=== PATIENT | male | born 1940 | race Caucasian/White ===

== ENCOUNTER 2017-02-19 10:27 | Inpatient (IN) | payer MEDICARE, OTHER ==
[~2017-02-19] VITALS: Ht 170.2 cm; Wt 68.9 kg
--- NOTE | 2017-02-19 10:39 | NUR ---
Per pt's daughter Gabi pt is not taking any medications at this time.
--- NOTE | 2017-02-19 10:39 | NUR ---
STACY SALGADO (FROM [facility]) WHO STATES SHE IS THE PT'S DAUGHTER. FELICITA SALGADO PT IS CURRENTLY HOMELESS AND THEY WERE REFERRED HERE BY THE PSYCH INTAKE FROM THIS FACILITY. PT IS A 76 Y/O MALE. ARRIVED IN THE ED WITH THE USED OF WHEELCHAIR. PT IS ABLE TO WALK, BUT WITH UNSTEADY GAIT. PT HAVE CHRONIC KNEE PAIN. PT IS ACCOMPANIED BY DAUGHTER AT BEDSIDE. PT ALSO UTILIZES CANE TO AMBULATE AROUND. DENIES SI/HI/AVH. HOWEVER PT IS HOMELESS, UNABLE TO PROVIDE HALF-WAY FOR THEMSELVES. MD PARIS AT BEDSIDE PERFORMING MSE. WCTM PT AT THIS TIME. PUSHPA NOTIFIED FOR PSYCH EVAL AT 4780
[2017-02-19 11:03] LABS: BASOPHILS # (AUTO) 0.4 K/uL (0.0-8.0); BASOPHILS % (AUTO) 3.1 % (0.0-2.0); EOSINOPHILS % (AUTO) 0.3 % (0.0-7.0); HEMATOCRIT 43.4 % (40-50); HEMOGLOBIN 14.7 G/DL (14.0-18.0); LYMPHOCYTES # (AUTO) 2.2 K/UL (0.8-4.8); LYMPHOCYTES % (AUTO) 18.9 % (20.5-51.5); MEAN CORPUSCULAR HEMOGLOBIN 30.1 UUG (27.0-31.0); MEAN CORPUSCULAR HGB CONC 34 g/dL (32.0-37.0); MEAN CORPUSCULAR VOLUME 88.9 FL (82.0-92.0); MONOCYTES # (AUTO) 0.6 K/UL (0.1-1.30); NEUTROPHILS # (AUTO) 8.2 K/UL (1.8-8.9); NEUTROPHILS % (AUTO) 72.7 % (38.5-71.5); PLATELET COUNT (AUTO) 280 K/UL (150-450); RED BLOOD CELL COUNT(AUTO) 4.88 MIL/UL (4.7-6.1); WHITE BLOOD COUNT (AUTO) 11.4 K/UL (4.0-11.2)
[2017-02-19 11:09] LABS: ETHANOL < 3 MG/DL (0-0)
[2017-02-19 11:11] LABS: CARBON DIOXIDE 28 mmol/L (21-32); CHLORIDE 102 mmol/L (98-107); CREATININE 1.1 mg/dL (0.6-1.3); GLUCOSE 182 mg/dL (74-106); POTASSIUM 4.1 mmol/L (3.5-5.1); UREA NITROGEN, BLOOD 22 mg/dL (7-18)
[2017-02-19 11:22] LABS: ACETAMINOPHEN < 2.0 ug/mL (10-30); ALANINE AMINOTRANSFERASE 20 U/L (16-63); ALKALINE PHOSPHATASE 66 U/L (50-136); ASPARTATE AMINOTRANSFERASE 33 U/L (15-37); BILIRUBIN,DIRECT 0.4 mg/dL (0.0-0.2); BILIRUBIN,TOTAL 1.4 mg/dL (0.2-1.0); TOTAL PROTEIN, SERUM 7.6 g/dL (6.4-8.2)
--- NOTE | 2017-02-19 11:25 | NUR ---
PUSHPA AT BEDSIDE PERFORMING EVALUATION
[2017-02-19 11:48] LABS: BAND % (MANUAL) 10 % (0-10); LYMPHOCYTES % (MANUAL) 20 % (20-40); MONOCYTES % (MANUAL) 6 % (2-10); NEUTROPHILS % (MANUAL) 64 % (42-75)
--- NOTE | 2017-02-19 12:17 | NUR ---
REPORT GIVEN TO MASON RN AWARE OF PT'S CURRENT CONDITION AND WILL CONTINUE FURTHER PLAN OF CARE
[2017-02-19] MEDS ORDERED: MAGNESIUM HYDROXIDE 30 ML LIQUID UDC PO PRN (14:00)
[2017-02-19] MEDS ORDERED: LORAZEPAM 0.5 MG TABLET PO PRN (14:00)
[2017-02-19] MEDS ORDERED: MAG HYDROX/AL HYDROX/SIMETH 30 ML LIQUID UDC PO PRN (14:00)
[2017-02-19 15:36] VITALS: BP 139/75
--- NOTE | 2017-02-19 15:58 | NUR ---
1170 ADMITTED A 76 YRS. OLD TAJIK MALE FROM ER PER CARMEN WITH DX. PSYCHOSIS / DEMENTIA WITH BEHAVIORAL PROBLEM. PATIENT PLACED ON 5150 FOR DANGER TO SELF VERBALIZING SI " WANTING TO FROM LIVING ON STRE[address] AND NOT TAKING HIS PSYCHOTROPIC MEDICATIONS AFTER HIS LAST HOSPITALIZATION. PATIENT ALERT AND OX3, DENIES SI, MILDLY ANXIOUS BUT COOPERATIVE WHEN ASKED. ADMISSION CARE DONE. DR. CERRATO AND CROP OR GRAIN FARMWORKER, Edwin RUSHING NOTIFIED OF THE ADMISSION.
[2017-02-19] MEDS: FOLIC ACID 1 MG TABLET PO SCH (16:41)
[2017-02-19] MEDS: THIAMINE HCL 100 MG TABLET PO SCH (16:41)
[2017-02-19] MEDS: MULTIVITAMINS,THERAPEUTIC TABLET PO SCH (16:41)
[2017-02-19 20:13] VITALS: BP 123/71
[2017-02-19] MEDS: LORAZEPAM 1 MG TABLET PO SCH (21:53)
[2017-02-19] MEDS ORDERED: LORAZEPAM 1 MG TABLET PO PRN (22:00)
[2017-02-19] MEDS ORDERED: LORAZEPAM 1 MG TABLET ONE (22:05)
[2017-02-20 07:30] VITALS: BP 116/73
[2017-02-20 07:55] LABS: BASOPHILS % (AUTO) 0.2 % (0.0-2.0); EOSINOPHILS # (AUTO) 0.2 K/uL (0.0-0.7); EOSINOPHILS % (AUTO) 1.8 % (0.0-7.0); HEMATOCRIT 44.5 % (40-50); HEMOGLOBIN 14.6 G/DL (14.0-18.0); LYMPHOCYTES # (AUTO) 2.9 K/UL (0.8-4.8); LYMPHOCYTES % (AUTO) 32.5 % (20.5-51.5); MEAN CORPUSCULAR HEMOGLOBIN 29.5 UUG (27.0-31.0); MEAN CORPUSCULAR HGB CONC 33 g/dL (32.0-37.0); MEAN CORPUSCULAR VOLUME 89.8 FL (82.0-92.0); MONOCYTES # (AUTO) 0.6 K/UL (0.1-1.30); MONOCYTES % (AUTO) 6.6 % (0.0-11.0); NEUTROPHILS # (AUTO) 5.3 K/UL (1.8-8.9); NEUTROPHILS % (AUTO) 58.9 % (38.5-71.5); PLATELET COUNT (AUTO) 214 K/UL (150-450); RED BLOOD CELL COUNT(AUTO) 4.95 MIL/UL (4.7-6.1)
[2017-02-20 07:56] LABS: ALANINE AMINOTRANSFERASE 17 U/L (16-63); ALKALINE PHOSPHATASE 68 U/L (50-136); ASPARTATE AMINOTRANSFERASE 28 U/L (15-37); BILIRUBIN,TOTAL 1.9 mg/dL (0.2-1.0); CARBON DIOXIDE 29 mmol/L (21-32); CHLORIDE 104 mmol/L (98-107); CHOLESTEROL 119 mg/dL (<200); CREATININE 0.8 mg/dL (0.6-1.3); GLUCOSE 101 mg/dL (74-106); HDL CHOLESTEROL 91 mg/dL (40-60); MAGNESIUM 1.7 mg/dL (1.8-2.4); POTASSIUM 3.9 mmol/L (3.5-5.1); THYROID STIMULATING HORMONE 1.171 mIU/mL (0.358-3.740); TOTAL PROTEIN, SERUM 7.3 g/dL (6.4-8.2); TRIGLYCERIDES 66 MG/DL (30-150); UREA NITROGEN, BLOOD 17 mg/dL (7-18)
[2017-02-20] MEDS: THIAMINE HCL 100 MG TABLET PO SCH (08:04)
[2017-02-20] MEDS: MULTIVITAMINS,THERAPEUTIC TABLET PO SCH (08:04)
[2017-02-20] MEDS: FOLIC ACID 1 MG TABLET PO SCH (08:05)
[2017-02-20] MEDS: LORAZEPAM 1 MG TABLET PO SCH ×3 (08:05→17:35)
[2017-02-20] MEDS: ACETAMINOPHEN 325 MG TABLET PO PRN ×2 (08:12→22:05)
[2017-02-20] MEDS ORDERED: MAGNESIUM OXIDE 400 MG TABLET PO ONE (10:45)
[2017-02-20 12:11] LABS: BAND % (MANUAL) 12 % (0-10); BASOPHILS % (MANUAL) 1 % (0-2); EOSINOPHILS % (MANUAL) 3 % (0-8); LYMPHOCYTES % (MANUAL) 36 % (20-40); MONOCYTES % (MANUAL) 5 % (2-10); NEUTROPHILS % (MANUAL) 43 % (42-75)
[2017-02-20] MEDS: ESCITALOPRAM OXALATE 10 MG TABLET PO SCH (12:14)
[2017-02-20] MEDS ORDERED: PNEUMOCOCCAL 23-VAL P-SAC VAC 0.5 ML VIAL IM ONE (13:00)
[2017-02-20] MEDS ORDERED: IBUPROFEN 400 MG TABLET PO PRN (14:45)
[2017-02-20 17:14] VITALS: BP 122/74
[2017-02-20 19:55] LABS: *BILIRUBIN,URIN NEGATIVE (NEGATIVE); *BLOOD, URINE Trace-intact (NEGATIVE); *CLARITY,URINE CLEAR (CLEAR); *COLOR,URINE YELLOW (YELLOW); *KETONES,URINE NEGATIVE (NEGATIVE); *PROTEIN,URINE NEGATIVE (NEGATIVE); LEUKOCYTE ESTERASE ,URINE NEGATIVE (NEGATIVE); NITRITE, URINE NEGATIVE (NEGATIVE); UGLUCOSE NEGATIVE (NEGATIVE)
[2017-02-20 19:57] LABS: MUCUS,URINE FEW /LPF (0-FEW); SQUAMOUS EPITHELIAL CELL,UR FEW /HPF (NONE SEEN); WBC,URINE 0-3 /HPF (0-3)
[2017-02-20 19:57] LABS: *AMPHETAMINE, URINE NEGATIVE (NEGATIVE); *BARBITURATE, URINE NEGATIVE (NEGATIVE); *CANNABINOID, URINE POSITIVE (NEGATIVE); *COCCAINE, URINE NEGATIVE (NEGATIVE); *OPIATE, URINE NEGATIVE (NEGATIVE); *PHENCYCLIDINE SCREEN,URINE NEGATIVE (NEGATIVE)
[2017-02-20 20:31] VITALS: BP 118/73
[2017-02-20] MEDS: TEMAZEPAM 7.5 MG CAPSULE PO PRN (22:06)
[2017-02-21 07:30] VITALS: BP 102/68
[2017-02-21] MEDS ORDERED: LORAZEPAM 1 MG TABLET PO SCH (09:00)
[2017-02-21] MEDS: FOLIC ACID 1 MG TABLET PO SCH (10:44)
[2017-02-21] MEDS: MULTIVITAMINS,THERAPEUTIC TABLET PO SCH (10:45)
[2017-02-21] MEDS: ESCITALOPRAM OXALATE 10 MG TABLET PO SCH (10:46)
[2017-02-21] MEDS: THIAMINE HCL 100 MG TABLET PO SCH (10:47)
[2017-02-21] MEDS: ACETAMINOPHEN 325 MG TABLET PO PRN ×2 (11:22→21:08)
[2017-02-21 16:10] VITALS: BP 127/72
[2017-02-21] MEDS: LORAZEPAM 0.5 MG TABLET PO SCH (17:23)
[2017-02-21 21:05] VITALS: BP 128/74
[2017-02-21] MEDS: TEMAZEPAM 7.5 MG CAPSULE PO PRN (21:08)
[2017-02-22 07:45] VITALS: BP 111/66
[2017-02-22] MEDS: THIAMINE HCL 100 MG TABLET PO SCH (08:03)
[2017-02-22] MEDS: FOLIC ACID 1 MG TABLET PO SCH (08:03)
[2017-02-22] MEDS: MULTIVITAMINS,THERAPEUTIC TABLET PO SCH (08:05)
[2017-02-22] MEDS: ESCITALOPRAM OXALATE 10 MG TABLET PO SCH (08:05)
[2017-02-22] MEDS: LORAZEPAM 0.5 MG TABLET PO SCH ×3 (08:05→16:40)
--- NOTE | 2017-02-22 16:00 | NUR ---
Initial DC Plan: Patient is currently homeless. Pt would like to be placed at [facility] [[address], [place] [address]; ]. YUSRA spoke with pt's daughter Gabi [[phone]] who agrees that pt should be placed at [facility]. YUSRA will follow up with [facility] to discuss potential discharge plans. UYSRA will follow up with MD, patient, and pt's family to discuss most appropriate discharge plans. SW will form a safe and proper discharge plan.
[2017-02-22 17:41] VITALS: BP 137/86
[2017-02-22 20:33] VITALS: BP 112/70
[2017-02-23 07:30] VITALS: BP 131/92
[2017-02-23] MEDS: ESCITALOPRAM OXALATE 10 MG TABLET PO SCH (08:30)
[2017-02-23] MEDS: THIAMINE HCL 100 MG TABLET PO SCH (08:30)
[2017-02-23] MEDS: FOLIC ACID 1 MG TABLET PO SCH (08:30)
[2017-02-23] MEDS: MULTIVITAMINS,THERAPEUTIC TABLET PO SCH (08:30)
[2017-02-23] MEDS ORDERED: LORAZEPAM 0.5 MG TABLET PO SCH (09:00)
[2017-02-23] MEDS: CEPHALEXIN MONOHYDRATE 500 MG CAPSULE PO SCH ×3 (10:27→21:14)
[2017-02-23] MEDS ORDERED: LORAZEPAM 0.5 MG TABLET PO PRN (11:30)
[2017-02-23 17:00] VITALS: BP 130/64
[2017-02-23 20:05] VITALS: BP 121/70
[2017-02-23] MEDS ORDERED: DONEPEZIL 5 MG TABLET PO SCH (21:00)
[2017-02-23] MEDS ORDERED: LORAZEPAM 1 MG TABLET PO PRN (22:00)
[2017-02-24] MEDS: ACETAMINOPHEN 325 MG TABLET PO PRN (06:22)
[2017-02-24] MEDS: CEPHALEXIN MONOHYDRATE 500 MG CAPSULE PO SCH ×2 (06:22→14:12)
[2017-02-24 07:30] VITALS: BP 131/69
[2017-02-24] MEDS: MULTIVITAMINS,THERAPEUTIC TABLET PO SCH (08:52)
[2017-02-24] MEDS: THIAMINE HCL 100 MG TABLET PO SCH (08:52)
[2017-02-24] MEDS: FOLIC ACID 1 MG TABLET PO SCH (08:52)
[2017-02-24] MEDS: ESCITALOPRAM OXALATE 10 MG TABLET PO SCH (08:52)
--- NOTE | 2017-02-24 10:43 | NUR ---
DC Note: Patient will be discharged to [facility] [[address], [place] [address]; ] via private transport at 3pm. Patient will be picked up by [facility]. YUSRA spoke with nurse outreach case manager Belinda at [facility] to confirm discharge plans and transportation. Patient is aware and agreeable to discharge plan. YUSRA spoke to pt's daughter Gabi Ruiz [[phone]] who is aware and agreeable to discharge plan. Pt will follow up with Dr. Salazar (Carbon Sequestration Plant Manager) and Dr. Allan (Psychiatrist). Pt was provided a brief substance abuse intervention and was given referrals for [facility] [place] [[phone]], [facility] [[phone]], and [facility] [place] [[phone]].
[2017-02-24 15:12] VITALS: BP 128/64
--- NOTE | 2017-02-24 16:00 | NUR ---
Patient is for discharge today at [facility], discharged instructions reviewed with patient, educate the importance of medication compliance and follow up check up, verbalized understanding and signed discharged papers. Report given to ARIADNA Burton at [facility]. Patient was discharged in stable condition, denies suicidal ideation, stable. Patient left the unit at 1550 with all his belongings and discharged papers accompanied by staff via wheelchair.
== END 2017-02-24 15:50 | DRG 885 ==
LOC: ER 10:27 → GPS 12:56
PROVIDERS: ADMIT Psychiatry & Neurology Psychosomatic Medicine; ATTEND Internal Medicine
DX: F33.2 Major depressive disorder, recurrent severe without psychotic features (principal); E44.0 Moderate protein-calorie malnutrition; F03.91 Unspecified dementia, unspecified severity, with behavioral disturbance; E88.09 Other disorders of plasma-protein metabolism, not elsewhere classified; N39.0 Urinary tract infection, site not specified; R45.851 Suicidal ideations; E83.42 Hypomagnesemia; G89.29 Other chronic pain; R73.03 Prediabetes; Z59.0 Homelessness; F10.20 Alcohol dependence, uncomplicated; Y90.9 Presence of alcohol in blood, level not specified; D72.829 Elevated white blood cell count, unspecified; E80.6 Other disorders of bilirubin metabolism; M17.0 Bilateral primary osteoarthritis of knee; K80.20 Calculus of gallbladder without cholecystitis without obstruction; K76.0 Fatty (change of) liver, not elsewhere classified; Z68.23 Body mass index [BMI] 23.0-23.9, adult; M24.462 Recurrent dislocation, left knee; M24.461 Recurrent dislocation, right knee
CPT/HCPCS: 36415; 70450; 71010; 73560; 76705; 80307; 83735; 84100; 84443; 85025; 87086; 90732; 93005; A4663; G0480; G0480-TC

== ENCOUNTER 2017-05-21 16:45 | Inpatient (IN) | payer MEDICARE, OTHER ==
[~2017-05-21] VITALS: Ht 170.2 cm; Wt 74.8 kg
--- NOTE | 2017-05-21 16:50 | NUR ---
SECURITY/OBSERVER AT BEDSIDE.
--- NOTE | 2017-05-21 17:20 | NUR ---
PATIENT SEEN BY MD. HE IS AWAKE AND ALERT. AWAITING TEST RESULTS.
[2017-05-21] MEDS ORDERED: SENN-167 PO (17:21)
[2017-05-21] MEDS ORDERED: ACET325C PO (17:21)
[2017-05-21] MEDS ORDERED: MULT1TAB73 PO (17:21)
[2017-05-21] MEDS ORDERED: MAGN500T2 PO (17:21)
[2017-05-21] MEDS ORDERED: ESCI10TA PO (17:21)
[2017-05-21] MEDS ORDERED: LACT10SO PO (17:21)
[2017-05-21] MEDS ORDERED: FOLI1TAB16 PO (17:21)
[2017-05-21] MEDS ORDERED: ACET325T53 PO (17:21)
[2017-05-21] MEDS ORDERED: IBUP-1953 PO (17:21)
[2017-05-21] MEDS ORDERED: BISA10SU12 RC (17:21)
[2017-05-21] MEDS ORDERED: THIA100T13 PO (17:21)
[2017-05-21] MEDS ORDERED: MAGN400O6 PO (17:21)
[2017-05-21] MEDS ORDERED: DONE5TAB34 PO (17:21)
[2017-05-21 17:41] LABS: BASOPHILS # (AUTO) 0.1 K/uL (0.0-8.0); EOSINOPHILS # (AUTO) 0.2 K/uL (0.0-0.7); EOSINOPHILS % (AUTO) 1.7 % (0.0-7.0); HEMATOCRIT 37.6 % (36.7-47.1); HEMOGLOBIN 12.6 g/dL (12.5-16.3); LYMPHOCYTES # (AUTO) 3.6 K/uL (20.0-40.0); LYMPHOCYTES % (AUTO) 28.6 % (20.5-51.5); MEAN CORPUSCULAR HEMOGLOBIN 30.7 uug (23.8-33.4); MEAN CORPUSCULAR HGB CONC 33 g/dL (32.5-36.3); MEAN CORPUSCULAR VOLUME 91.9 fL (73.0-96.2); MONOCYTES # (AUTO) 0.9 K/uL (2.0-10.0); MONOCYTES % (AUTO) 7.4 % (0.0-11.0); NEUTROPHILS # (AUTO) 7.7 K/uL (1.8-8.9); NEUTROPHILS % (AUTO) 61.3 % (38.5-71.5); PLATELET COUNT (AUTO) 304 K/uL (152-348); WHITE BLOOD COUNT (AUTO) 12.5 K/uL (3.6-10.2)
[2017-05-21 17:50] LABS: CARBON DIOXIDE 25 mmol/L (21-32); CHLORIDE 105 mmol/L (98-107); GLUCOSE 100 mg/dL (74-106); UREA NITROGEN, BLOOD 17 mg/dL (7-18)
[2017-05-21 17:56] LABS: ALANINE AMINOTRANSFERASE 23 U/L (16-63); ALKALINE PHOSPHATASE 61 U/L (50-136); ASPARTATE AMINOTRANSFERASE 37 U/L (15-37); BILIRUBIN,DIRECT 0.1 mg/dL (0.0-0.2); BILIRUBIN,TOTAL 0.5 mg/dL (0.2-1.0)
[2017-05-21 18:07] LABS: ETHANOL < 3 MG/DL (0-0)
[2017-05-21 18:16] LABS: THYROID STIMULATING HORMONE 0.947 mIU/mL (0.358-3.740)
[2017-05-21 18:18] LABS: *BILIRUBIN,URIN NEGATIVE (NEGATIVE); *BLOOD, URINE 1+ (NEGATIVE); *CLARITY,URINE CLEAR (CLEAR); *COLOR,URINE YELLOW (YELLOW); *KETONES,URINE NEGATIVE (NEGATIVE); *PROTEIN,URINE NEGATIVE (NEGATIVE); *UROBILINOGEN,URINE 0.2 E.U./dl (NORMAL); LEUKOCYTE ESTERASE ,URINE NEGATIVE (NEGATIVE); NITRITE, URINE NEGATIVE (NEGATIVE); PH,URINE 5.5 (5.0-8.0); UGLUCOSE NEGATIVE (NEGATIVE)
--- NOTE | 2017-05-21 18:23 | NUR ---
AWAITING FOR TICO COLLIER FOR PSYCH EVAL. SECURITY/OBSERVER AT BEDSIDE.
[2017-05-21 18:26] LABS: WBC,URINE 0-3 /HPF (0-3)
[2017-05-21 18:27] LABS: BACTERIA,URINE NONE SEEN /HPF (NONE SEEN); SQUAMOUS EPITHELIAL CELL,UR FEW /HPF (NONE SEEN)
[2017-05-21 18:34] LABS: *AMPHETAMINE, URINE NEGATIVE (NEGATIVE); *BARBITURATE, URINE NEGATIVE (NEGATIVE); *CANNABINOID, URINE POSITIVE (NEGATIVE); *COCCAINE, URINE NEGATIVE (NEGATIVE); *OPIATE, URINE NEGATIVE (NEGATIVE); *PHENCYCLIDINE SCREEN,URINE NEGATIVE (NEGATIVE)
[2017-05-21] MEDS ORDERED: OLANZAPINE 5 MG TABLET PO ONE (20:30)
[2017-05-21] MEDS ORDERED: OLANZAPINE 5 MG TABLET ONE (20:47)
--- NOTE | 2017-05-21 20:57 | NUR ---
Pt. admitted to [facility], under care of Dr. Ventura Belongs List completed
[2017-05-21] MEDS ORDERED: MAG HYDROX/AL HYDROX/SIMETH 30 ML LIQUID UDC PO PRN (21:15)
[2017-05-21] MEDS ORDERED: MAGNESIUM HYDROXIDE 30 ML LIQUID UDC PO PRN ×2 (21:15→23:45)
--- NOTE | 2017-05-21 22:00 | NUR ---
ADMITTED 77 YEARS OLD MALE TO [facility], UNDER THE CARE OF DR MANJARREZ, ON A 5150 HOLD DUE TO GD. HOLDS STARTED ON 05/21/17 AT 1999 AND WILL BE UP ON 05/24/17 AT 1999. HE WAS MEDICALLY CLEARED AT [facility] ER. PATIENT [facility] PER HOLD, PATIENT HAD BEEN [facility]EMPTING TO [facility] AND HAS HISTORY OF HAVING [facility] IN THE PAST. AT ER, PATIENT ATTEMPTED TO [facility] AND REQUIRED CODE WEN TO SUBDUE PT. PT. HAD DELUSIONAL FIXED IDEA THAT HE CAN LIVE ON THE STREET, HOWEVER, UNABLE TO STAY HOW HE WILL PROVIDE FOR HIMSELF. PATIENT WAS GIVEN ZYPREXA 10MG IM AT APPROX 2044. AT TIME OF ADMISSION, PATIENT WAS CALM AND COOPERATIVE AT TIME OF ADMISSION. HE HAS ABLE COOPERATE WITH ADMISSION PROCESS, HOWEVER HE HAD POOR INSIGHT. DENIED ATTEMPTING TO [facility]. SKIN ASSESSMENT. A BULGED ROUNDED PROTRUDING AREA OF APPROX 10CM IN DIAMETER WAS NOTED IN UPPER LEFT ARM ANTERIOR ASPECT. NO REDNESS DISCHARGED OR WARM TO THE TOUCH WAS NOTED. PATIENT DENIED PAIN. TWO SMALL PURPLE DISCOLORATION NOTED IN LEFT UPPER ARM ANTERIOR ASPECT WERE NOTED. A CIRCULAR BRUISE OF APPROX 4CM IN DIAMETER WAS NOTED IN LEFT ARM ANTERIOR DISTAL ASPECT. TWO SMALL SUPERFICIAL SCRAPES NOTED IN RIGHT UPPER CHEST. MEDICATION WERE RECONCILE.WILL CONTINUE TO MONITOR, Addendum: 05/22/17 at 0558 by HERNAN LEWIS RN CORRECTION: ZYPREXA 10MG PO WAS GIVEN AT APPROX 2034 IN THE ER, PRIOR TO ADMISSION TO U.
[2017-05-21] MEDS ORDERED: SENNOSIDES 1 TABLET PO PRN (23:45)
[2017-05-21] MEDS ORDERED: BISACODYL 10 MG SUPP.RECT RC PRN (23:45)
[2017-05-21 23:50] VITALS: BP 126/65
[2017-05-22] MEDS: ACETAMINOPHEN 325 MG TABLET PO PRN ×2 (06:25→22:58)
--- NOTE | 2017-05-22 06:34 | NUR ---
PATIENT SLEPT FOR APPROX 7.30HRS THROUGH THE NIGHT. HE WOKE UP C/O LEG CRAMPS. TYLENOL 650MG PO PRN WAS GIVEN FOR LEG CRAMPING. WILL MONITOR.
[2017-05-22] MEDS ORDERED: ACETAMINOPHEN 325 MG TABLET ONE (06:41)
[2017-05-22 07:30] VITALS: BP 102/62
[2017-05-22] MEDS: FOLIC ACID 1 MG TABLET PO SCH (12:46)
[2017-05-22] MEDS: THIAMINE HCL 100 MG TABLET PO SCH (12:46)
[2017-05-22 12:57] LABS: BASOPHILS # (AUTO) 0.1 K/uL (0.0-8.0); EOSINOPHILS # (AUTO) 0.2 K/uL (0.0-0.7); EOSINOPHILS % (AUTO) 2.8 % (0.0-7.0); HEMATOCRIT 40.7 % (36.7-47.1); HEMOGLOBIN 13.5 g/dL (12.5-16.3); LYMPHOCYTES # (AUTO) 1.9 K/uL (20.0-40.0); LYMPHOCYTES % (AUTO) 24.8 % (20.5-51.5); MEAN CORPUSCULAR HEMOGLOBIN 30.3 uug (23.8-33.4); MEAN CORPUSCULAR HGB CONC 33 g/dL (32.5-36.3); MEAN CORPUSCULAR VOLUME 91.7 fL (73.0-96.2); MONOCYTES # (AUTO) 0.4 K/uL (2.0-10.0); MONOCYTES % (AUTO) 5.3 % (0.0-11.0); NEUTROPHILS # (AUTO) 4.9 K/uL (1.8-8.9); NEUTROPHILS % (AUTO) 66.1 % (38.5-71.5); PLATELET COUNT (AUTO) 286 K/uL (152-348); RED BLOOD CELL COUNT(AUTO) 4.44 MIL/uL (4.06-5.63); WHITE BLOOD COUNT (AUTO) 7.5 K/uL (3.6-10.2)
[2017-05-22] MEDS: IBUPROFEN 400 MG TABLET PO PRN (13:52)
[2017-05-22 15:46] VITALS: BP 115/44
[2017-05-22] MEDS: LACTULOSE 20 G/30 ML LIQUID UDC PO SCH (16:24)
[2017-05-22 20:03] VITALS: BP 130/55
[2017-05-22] MEDS: DONEPEZIL 5 MG TABLET PO SCH (20:34)
[2017-05-22] MEDS ORDERED: DONEPEZIL 5 MG TABLET PO SCH (21:00)
[2017-05-22] MEDS: ZOLPIDEM 5 MG TABLET PO PRN (22:58)
[2017-05-23 07:30] VITALS: BP 127/70
[2017-05-23] MEDS: FOLIC ACID 1 MG TABLET PO SCH (09:48)
[2017-05-23] MEDS: MAGNESIUM OXIDE 250 MG TABLET PO SCH (09:48)
[2017-05-23] MEDS: ESCITALOPRAM OXALATE 10 MG TABLET PO SCH (09:49)
[2017-05-23] MEDS: THIAMINE HCL 100 MG TABLET PO SCH (09:49)
[2017-05-23] MEDS: LORAZEPAM 0.5 MG TABLET PO PRN ×2 (09:49→22:34)
[2017-05-23] MEDS: LACTULOSE 20 G/30 ML LIQUID UDC PO SCH ×2 (09:49→17:42)
[2017-05-23] MEDS: MULTIVITAMINS,THERAPEUTIC TABLET PO SCH (09:49)
[2017-05-23 15:39] VITALS: BP 107/63
[2017-05-23] MEDS: DONEPEZIL 5 MG TABLET PO SCH (20:14)
[2017-05-23] MEDS: ZOLPIDEM 5 MG TABLET PO PRN (20:16)
[2017-05-23] MEDS: ACETAMINOPHEN 325 MG TABLET PO PRN (20:16)
[2017-05-23 20:23] VITALS: BP 111/58
[2017-05-23] MEDS: IBUPROFEN 400 MG TABLET PO PRN (22:34)
[2017-05-24 07:30] VITALS: BP 115/49
[2017-05-24] MEDS: LORAZEPAM 0.5 MG TABLET PO PRN (08:51)
[2017-05-24] MEDS: THIAMINE HCL 100 MG TABLET PO SCH (09:36)
[2017-05-24] MEDS: FOLIC ACID 1 MG TABLET PO SCH (09:36)
[2017-05-24] MEDS: LACTULOSE 20 G/30 ML LIQUID UDC PO SCH ×2 (09:36→17:02)
[2017-05-24] MEDS: MAGNESIUM OXIDE 250 MG TABLET PO SCH (09:37)
[2017-05-24] MEDS: MULTIVITAMINS,THERAPEUTIC TABLET PO SCH (09:37)
[2017-05-24] MEDS: ESCITALOPRAM OXALATE 10 MG TABLET PO SCH (09:37)
[2017-05-24] MEDS: DIVALPROEX 125 MG TABLET.DR PO SCH (13:51)
--- NOTE | 2017-05-24 14:10 | NUR ---
Initial DC Plan: Patient currently resides at [facility] [[address], [place] [address]; ] and stated that he would like to return there. SW will follow up with MD, patient, and patient's daughter Gabi [[phone]] to discuss most appropriate discharge plans. SW will form a safe and proper discharge.
[2017-05-24 16:30] VITALS: BP 112/63
[2017-05-24] MEDS: IBUPROFEN 400 MG TABLET PO PRN (19:52)
[2017-05-24 20:00] VITALS: BP 125/71
[2017-05-24] MEDS: DIVALPROEX ER 250 MG TAB.SR.24H PO SCH (20:04)
[2017-05-24] MEDS: DONEPEZIL 5 MG TABLET PO SCH (20:04)
[2017-05-24] MEDS: ACETAMINOPHEN 325 MG TABLET PO PRN (23:05)
[2017-05-24] MEDS: ZOLPIDEM 5 MG TABLET PO PRN (23:05)
[2017-05-25 07:30] VITALS: BP 109/66
[2017-05-25] MEDS: DIVALPROEX 125 MG TABLET.DR PO SCH ×2 (08:51→14:37)
[2017-05-25] MEDS: MULTIVITAMINS,THERAPEUTIC TABLET PO SCH (08:51)
[2017-05-25] MEDS: FOLIC ACID 1 MG TABLET PO SCH (08:51)
[2017-05-25] MEDS: THIAMINE HCL 100 MG TABLET PO SCH (08:51)
[2017-05-25] MEDS: LACTULOSE 20 G/30 ML LIQUID UDC PO SCH ×2 (08:51→17:33)
[2017-05-25] MEDS: ESCITALOPRAM OXALATE 10 MG TABLET PO SCH (08:51)
[2017-05-25] MEDS: MAGNESIUM OXIDE 250 MG TABLET PO SCH (08:51)
[2017-05-25] MEDS: IBUPROFEN 400 MG TABLET PO PRN ×2 (15:19→22:28)
[2017-05-25 16:27] VITALS: BP 117/67
[2017-05-25 20:00] VITALS: BP 120/64
[2017-05-25] MEDS: DIVALPROEX ER 250 MG TAB.SR.24H PO SCH (20:17)
[2017-05-25] MEDS: DONEPEZIL 5 MG TABLET PO SCH (20:17)
[2017-05-25] MEDS: ACETAMINOPHEN 325 MG TABLET PO PRN (20:32)
[2017-05-25] MEDS: ZOLPIDEM 5 MG TABLET PO PRN (21:50)
--- NOTE | 2017-05-25 22:00 | NUR ---
received to care, isolative in his room, pleasant upon approach. compliant with medications and staff direction. PRN ambien given at 2150, for insomnia. currently watching tv. no distress noted. will continue to monitor closely.
--- NOTE | 2017-05-25 23:00 | NUR ---
appears to be asleep. no distress noted. will continue to monitor closely.
--- NOTE | 2017-05-26 06:00 | NUR ---
slept 6.0 hours, total.
[2017-05-26 07:30] VITALS: BP 112/53
--- NOTE | 2017-05-26 08:06 | NUR ---
DC Note: Patient will be discharged to [facility] [[address], [place] [address]; ] via private transportation at 10am. Patient will be picked up by [facility]. YUSRA spoke with Belinda at [facility] to confirm discharge plans and transportation. Patient is aware and agreeable to discharge plan. YUSRA spoke to pt's daughter Gabi Ruiz [[phone]] who is aware and agreeable to discharge plan. Pt will follow up with Dr. Salazar (Ethologist) and Dr. Allan (Psychiatrist). Pt was provided a brief substance abuse intervention and was given referrals for [facility] [place] [[phone]], [facility] [[phone]], and [facility] [place] [[phone]].
[2017-05-26] MEDS: THIAMINE HCL 100 MG TABLET PO SCH (09:07)
[2017-05-26] MEDS: LACTULOSE 20 G/30 ML LIQUID UDC PO SCH (09:07)
[2017-05-26] MEDS: FOLIC ACID 1 MG TABLET PO SCH (09:07)
[2017-05-26] MEDS: DIVALPROEX 125 MG TABLET.DR PO SCH (09:07)
[2017-05-26] MEDS: MULTIVITAMINS,THERAPEUTIC TABLET PO SCH (09:07)
[2017-05-26] MEDS: ESCITALOPRAM OXALATE 10 MG TABLET PO SCH (09:07)
[2017-05-26] MEDS: MAGNESIUM OXIDE 250 MG TABLET PO SCH (09:09)
[2017-05-26] MEDS: ACETAMINOPHEN 325 MG TABLET PO PRN (09:27)
--- NOTE | 2017-05-26 11:30 | NUR ---
Pt is alert and orient x 2. No distress noted. Pt is being discharged back to [facility]. NO distress noted. Pt is cooperative. Pt is willing to go back. Discharge paperwork was given to the staff, [facility] who picked him up. all belonging returned
== END 2017-05-26 11:30 | DRG 885 ==
LOC: ER 16:46 → GPS 20:44
PROVIDERS: ADMIT Psychiatry & Neurology Psychosomatic Medicine; ATTEND Internal Medicine
DX: F33.2 Major depressive disorder, recurrent severe without psychotic features (principal); E44.0 Moderate protein-calorie malnutrition; F03.91 Unspecified dementia, unspecified severity, with behavioral disturbance; J98.11 Atelectasis; M17.0 Bilateral primary osteoarthritis of knee; E78.5 Hyperlipidemia, unspecified; I10 Essential (primary) hypertension; Z87.891 Personal history of nicotine dependence; Z79.899 Other long term (current) drug therapy; Z68.25 Body mass index [BMI] 25.0-25.9, adult; D72.829 Elevated white blood cell count, unspecified; S83.103 Unspecified subluxation of unspecified knee; X58.XXXD Exposure to other specified factors, subsequent encounter; F10.20 Alcohol dependence, uncomplicated; Y90.9 Presence of alcohol in blood, level not specified
CPT/HCPCS: 36415; 71010; 80307; 83735; 84443; 85025; 87040; 93005; A4663; G0480

== ENCOUNTER 2017-08-03 10:25 | Inpatient (IN) | payer MEDICARE, OTHER ==
[~2017-08-03] VITALS: Ht 170.2 cm; Wt 75.7 kg
[~2017-08-03 10:25] MED LIST: ACET325C PO; ACET325T53 PO; BISA10SU12 RC; FOLI1TAB16 PO; IBUP-1953 PO; LACT10SO PO; MAGN400O6 PO; MAGN500T2 PO; MULT1TAB73 PO; SENN-167 PO; THIA100T13 PO
[2017-08-03 11:26] LABS: HEMATOCRIT 42.6 % (40-50); RED BLOOD CELL COUNT(AUTO) 4.67 MIL/UL (4.7-6.1); WHITE BLOOD COUNT (AUTO) 10.7 K/UL (4.0-11.2)
[2017-08-03 11:27] LABS: CARBON DIOXIDE 24 mmol/L (21-32); CHLORIDE 102 mmol/L (98-107); CREATININE 1.1 mg/dL (0.6-1.3); ETHANOL < 3 MG/DL (0-0); GLUCOSE 158 mg/dL (74-106); MEAN CORPUSCULAR HGB CONC 33 g/dL (32.0-37.0); MEAN CORPUSCULAR VOLUME 91.1 FL (82.0-92.0); PLATELET COUNT (AUTO) 250 K/UL (150-450); POTASSIUM 3.3 mmol/L (3.5-5.1); UREA NITROGEN, BLOOD 20 mg/dL (7-18)
[2017-08-03 11:41] LABS: ALANINE AMINOTRANSFERASE 13 U/L (16-63); ALKALINE PHOSPHATASE 60 U/L (50-136); ASPARTATE AMINOTRANSFERASE 29 U/L (15-37); BILIRUBIN,DIRECT 0.3 mg/dL (0.0-0.2); BILIRUBIN,TOTAL 1.8 mg/dL (0.2-1.0); TOTAL PROTEIN, SERUM 7.6 g/dL (6.4-8.2)
[2017-08-03 11:42] LABS: ACETAMINOPHEN < 2.0 ug/mL (10-30)
[2017-08-03 12:03] LABS: BAND % (MANUAL) 1 % (0-10); LYMPHOCYTES % (MANUAL) 16 % (20-40); MONOCYTES % (MANUAL) 6 % (2-10); NEUTROPHILS % (MANUAL) 77 % (42-75)
[2017-08-03] MEDS ORDERED: MAGNESIUM HYDROXIDE 30 ML LIQUID UDC PO PRN (14:30)
[2017-08-03] MEDS ORDERED: ACETAMINOPHEN 325 MG TABLET PO PRN ×2 (14:30→22:30)
[2017-08-03] MEDS ORDERED: MAG HYDROX/AL HYDROX/SIMETH 30 ML LIQUID UDC PO PRN (14:30)
[2017-08-03 15:37] VITALS: BP 109/45
[2017-08-03 20:07] VITALS: BP 100/57
[2017-08-03] MEDS ORDERED: POTASSIUM CHLORIDE 20 MEQ TAB.PRT.SR PO ONE (21:00)
[2017-08-03] MEDS: DONEPEZIL 5 MG TABLET PO SCH (21:18)
[2017-08-03] MEDS ORDERED: BISACODYL 10 MG SUPP.RECT RC PRN (22:30)
[2017-08-03] MEDS ORDERED: SENNOSIDES 1 TABLET PO PRN (22:30)
[2017-08-04] MEDS: IBUPROFEN 400 MG TABLET PO PRN ×3 (05:40→20:03)
[2017-08-04 07:30] VITALS: BP 142/65
[2017-08-04] MEDS: THIAMINE HCL 100 MG TABLET PO SCH (08:09)
[2017-08-04] MEDS: FOLIC ACID 1 MG TABLET PO SCH (08:09)
[2017-08-04] MEDS: MULTIVITAMINS,THERAPEUTIC TABLET PO SCH (08:11)
[2017-08-04] MEDS: LACTULOSE 20 G/30 ML LIQUID UDC PO SCH ×2 (08:11→20:04)
[2017-08-04] MEDS ORDERED: LACTULOSE PO SCH (09:00)
[2017-08-04] MEDS ORDERED: Medication Not On Formulary EA (Multivitamins (Multivitamin) 1 EACH) PO SCH (09:00)
[2017-08-04] MEDS ORDERED: MAGNESIUM OXIDE 500 MG PO SCH (09:00)
[2017-08-04] MEDS: MAGNESIUM OXIDE 250 MG TABLET PO SCH (09:04)
[2017-08-04 16:06] VITALS: BP 118/62
[2017-08-04] MEDS: SERTRALINE HCL 50 MG TABLET PO SCH (16:07)
[2017-08-04] MEDS: DONEPEZIL 5 MG TABLET PO SCH (20:04)
[2017-08-04 20:23] VITALS: BP 149/60
[2017-08-04] MEDS: TEMAZEPAM 7.5 MG CAPSULE PO PRN (22:33)
[2017-08-05] MEDS: LORAZEPAM 0.5 MG TABLET PO PRN (00:10)
[2017-08-05 00:54] LABS: *BILIRUBIN,URIN NEGATIVE (NEGATIVE); *BLOOD, URINE Trace-lysed (NEGATIVE); *CLARITY,URINE CLEAR (CLEAR); *COLOR,URINE YELLOW (YELLOW); *KETONES,URINE TRACE (NEGATIVE); *PROTEIN,URINE NEGATIVE (NEGATIVE); *UROBILINOGEN,URINE 0.2 E.U./dl (NORMAL); LEUKOCYTE ESTERASE ,URINE NEGATIVE (NEGATIVE); NITRITE, URINE NEGATIVE (NEGATIVE); PH,URINE 5.5 (5.0-8.0); UGLUCOSE NEGATIVE (NEGATIVE)
[2017-08-05 00:55] LABS: BACTERIA,URINE NONE SEEN /HPF (NONE SEEN); RBC,URINE 0-3 /HPF (0-3); SQUAMOUS EPITHELIAL CELL,UR FEW /HPF (NONE SEEN); WBC,URINE 0-3 /HPF (0-3)
[2017-08-05 01:06] LABS: *AMPHETAMINE, URINE NEGATIVE (NEGATIVE); *BARBITURATE, URINE NEGATIVE (NEGATIVE); *CANNABINOID, URINE POSITIVE (NEGATIVE); *COCCAINE, URINE NEGATIVE (NEGATIVE); *OPIATE, URINE NEGATIVE (NEGATIVE); *PHENCYCLIDINE SCREEN,URINE NEGATIVE (NEGATIVE)
[2017-08-05] MEDS: IBUPROFEN 400 MG TABLET PO PRN ×2 (04:18→19:44)
[2017-08-05 07:30] VITALS: BP 156/77
[2017-08-05] MEDS: THIAMINE HCL 100 MG TABLET PO SCH (08:08)
[2017-08-05] MEDS: LACTULOSE 20 G/30 ML LIQUID UDC PO SCH ×2 (08:08→20:36)
[2017-08-05] MEDS: FOLIC ACID 1 MG TABLET PO SCH (08:08)
[2017-08-05] MEDS: MULTIVITAMINS,THERAPEUTIC TABLET PO SCH (08:08)
[2017-08-05] MEDS: MAGNESIUM OXIDE 250 MG TABLET PO SCH (08:08)
[2017-08-05 15:07] VITALS: BP 116/64
[2017-08-05] MEDS: SERTRALINE HCL 50 MG TABLET PO SCH (16:00)
[2017-08-05 20:00] VITALS: BP 137/66
[2017-08-05] MEDS: DONEPEZIL 5 MG TABLET PO SCH (20:09)
[2017-08-05] MEDS: TEMAZEPAM 7.5 MG CAPSULE PO PRN (21:36)
[2017-08-06 07:30] VITALS: BP 125/67
[2017-08-06] MEDS: MULTIVITAMINS,THERAPEUTIC TABLET PO SCH (08:05)
[2017-08-06] MEDS: MAGNESIUM OXIDE 250 MG TABLET PO SCH (08:05)
[2017-08-06] MEDS: FOLIC ACID 1 MG TABLET PO SCH (08:05)
[2017-08-06] MEDS: THIAMINE HCL 100 MG TABLET PO SCH (08:05)
[2017-08-06] MEDS: LACTULOSE 20 G/30 ML LIQUID UDC PO SCH ×2 (08:06→20:07)
[2017-08-06 15:12] VITALS: BP 121/61
[2017-08-06] MEDS: SERTRALINE HCL 50 MG TABLET PO SCH (16:00)
[2017-08-06] MEDS: IBUPROFEN 400 MG TABLET PO PRN (20:06)
[2017-08-06] MEDS: DONEPEZIL 5 MG TABLET PO SCH (20:07)
[2017-08-06 20:30] VITALS: BP 136/72
[2017-08-07 08:03] VITALS: BP 125/68
[2017-08-07] MEDS: MULTIVITAMINS,THERAPEUTIC TABLET PO SCH (08:14)
[2017-08-07] MEDS: THIAMINE HCL 100 MG TABLET PO SCH (08:14)
[2017-08-07] MEDS: FOLIC ACID 1 MG TABLET PO SCH (08:14)
[2017-08-07] MEDS: SERTRALINE HCL 50 MG TABLET PO SCH ×2 (08:14→16:51)
[2017-08-07] MEDS: LACTULOSE 20 G/30 ML LIQUID UDC PO SCH ×2 (08:29→20:22)
[2017-08-07] MEDS: MAGNESIUM OXIDE 250 MG TABLET PO SCH (08:44)
[2017-08-07 15:53] VITALS: BP 120/80
[2017-08-07] MEDS: IBUPROFEN 400 MG TABLET PO PRN (16:51)
[2017-08-07] MEDS: DONEPEZIL 5 MG TABLET PO SCH (20:17)
[2017-08-07 20:36] VITALS: BP 114/68
[2017-08-07] MEDS: TEMAZEPAM 7.5 MG CAPSULE PO PRN (23:25)
[2017-08-08 07:30] VITALS: BP 113/49
[2017-08-08] MEDS: FOLIC ACID 1 MG TABLET PO SCH (08:58)
[2017-08-08] MEDS: MULTIVITAMINS,THERAPEUTIC TABLET PO SCH (08:59)
[2017-08-08] MEDS: SERTRALINE HCL 50 MG TABLET PO SCH ×2 (08:59→16:13)
[2017-08-08] MEDS: MAGNESIUM OXIDE 250 MG TABLET PO SCH (08:59)
[2017-08-08] MEDS: THIAMINE HCL 100 MG TABLET PO SCH (08:59)
[2017-08-08] MEDS: LACTULOSE 20 G/30 ML LIQUID UDC PO SCH ×2 (09:00→20:05)
[2017-08-08 15:46] VITALS: BP 128/68
[2017-08-08] MEDS: DONEPEZIL 5 MG TABLET PO SCH (20:05)
[2017-08-08] MEDS: IBUPROFEN 400 MG TABLET PO PRN (20:10)
[2017-08-08 20:29] VITALS: BP 104/64
[2017-08-08] MEDS: TEMAZEPAM 7.5 MG CAPSULE PO PRN (21:14)
[2017-08-08] MEDS: LORAZEPAM 0.5 MG TABLET PO PRN (22:15)
[2017-08-09 07:30] VITALS: BP 116/57
[2017-08-09] MEDS: FOLIC ACID 1 MG TABLET PO SCH (08:11)
[2017-08-09] MEDS: MAGNESIUM OXIDE 250 MG TABLET PO SCH (08:11)
[2017-08-09] MEDS: MULTIVITAMINS,THERAPEUTIC TABLET PO SCH (08:11)
[2017-08-09] MEDS: THIAMINE HCL 100 MG TABLET PO SCH (08:11)
[2017-08-09] MEDS: SERTRALINE HCL 50 MG TABLET PO SCH (08:12)
[2017-08-09] MEDS: LACTULOSE 20 G/30 ML LIQUID UDC PO SCH (08:19)
== END 2017-08-09 14:15 | DRG 885 ==
LOC: ER 10:25 → GPS 13:16
PROVIDERS: ADMIT Psychiatry & Neurology Psychosomatic Medicine; ATTEND Internal Medicine
DX: F39 Unspecified mood [affective] disorder (principal); F03.91 Unspecified dementia, unspecified severity, with behavioral disturbance; K76.0 Fatty (change of) liver, not elsewhere classified; Z59.0 Homelessness; F10.20 Alcohol dependence, uncomplicated; Y90.0 Blood alcohol level of less than 20 mg/100 ml; F17.211 Nicotine dependence, cigarettes, in remission; K80.20 Calculus of gallbladder without cholecystitis without obstruction; E87.6 Hypokalemia; M17.0 Bilateral primary osteoarthritis of knee; R73.03 Prediabetes; G47.00 Insomnia, unspecified; Z91.19 Patient's noncompliance with other medical treatment and regimen; Z79.899 Other long term (current) drug therapy
CPT/HCPCS: 36415; 80307; 85025; 87086; 93005; 97116; 97530; A4663; G0480; G0480-TC

== ENCOUNTER 2018-03-01 13:09 | Inpatient (IN) | payer MEDICARE, OTHER ==
[~2018-03-01] VITALS: Ht 167.6 cm; Wt 74.4 kg
[2018-03-01 14:24] LABS: CARBON DIOXIDE 23 mmol/L (21-32); CHLORIDE 103 mmol/L (98-107); CREATININE 0.8 mg/dL (0.6-1.3); GLUCOSE 164 mg/dL (74-106); UREA NITROGEN, BLOOD 10 mg/dL (7-18)
[2018-03-01 14:29] LABS: BASOPHILS # (AUTO) 0.1 K/uL (0.0-8.0); BASOPHILS % (AUTO) 0.6 % (0.0-2.0); EOSINOPHILS # (AUTO) 0.1 K/uL (0.0-0.7); EOSINOPHILS % (AUTO) 0.8 % (0.0-7.0); HEMATOCRIT 42.1 % (36.7-47.1); HEMOGLOBIN 14.2 g/dL (12.5-16.3); LYMPHOCYTES # (AUTO) 1.5 K/uL (20.0-40.0); LYMPHOCYTES % (AUTO) 17.4 % (20.5-51.5); MEAN CORPUSCULAR HGB CONC 34 g/dL (32.5-36.3); MONOCYTES # (AUTO) 0.5 K/uL (2.0-10.0); MONOCYTES % (AUTO) 6.4 % (0.0-11.0); NEUTROPHILS # (AUTO) 6.2 K/uL (1.8-8.9); NEUTROPHILS % (AUTO) 74.8 % (38.5-71.5); PLATELET COUNT (AUTO) 205 K/uL (152-348); POTASSIUM 2.8 mmol/L (3.5-5.1); RED BLOOD CELL COUNT(AUTO) 4.57 MIL/uL (4.06-5.63); WHITE BLOOD COUNT (AUTO) 8.3 K/uL (3.6-10.2)
[2018-03-01 14:30] LABS: ALANINE AMINOTRANSFERASE 16 U/L (16-63); ALKALINE PHOSPHATASE 64 U/L (50-136); ASPARTATE AMINOTRANSFERASE 27 U/L (15-37); BILIRUBIN,DIRECT 0.3 mg/dL (0.0-0.2); BILIRUBIN,TOTAL 0.8 mg/dL (0.2-1.0); TOTAL PROTEIN, SERUM 6.9 g/dL (6.4-8.2)
[2018-03-01 14:46] LABS: ETHANOL 64 MG/DL (0-0)
[2018-03-01 14:58] LABS: MAGNESIUM 1.6 mg/dL (1.8-2.4)
[2018-03-01] MEDS ORDERED: POTASSIUM BICARBONATE/CIT AC 25 MEQ TABLET.EFF PO ONE (15:00)
[2018-03-01 15:06] LABS: *AMPHETAMINE, URINE NEGATIVE (NEGATIVE); *BARBITURATE, URINE NEGATIVE (NEGATIVE); *CANNABINOID, URINE POSITIVE (NEGATIVE); *COCCAINE, URINE NEGATIVE (NEGATIVE); *OPIATE, URINE NEGATIVE (NEGATIVE); *PHENCYCLIDINE SCREEN,URINE NEGATIVE (NEGATIVE)
[2018-03-01] MEDS ORDERED: POTASSIUM CHLORIDE 50 ML ONE ×2 (15:09→17:19)
[2018-03-01] MEDS ORDERED: POTASSIUM BICARBONATE/CIT AC 25 MEQ TABLET.EFF ONE ×2 (15:10→15:15)
[2018-03-01] MEDS: POTASSIUM CHLORIDE 50 ML IV SCH ×5 (15:11→15:55)
[2018-03-01] MEDS ORDERED: MAGNESIUM SULFATE/D5W 100 ML ONE ×2 (15:54)
[2018-03-01] MEDS: MAGNESIUM SULFATE/D5W 100 ML IV SCH (15:55)
--- NOTE | 2018-03-01 17:51 | NUR ---
PT EATING HOSPITAL DINNER TRAY WITH GOOD APETITE.
[2018-03-01] MEDS ORDERED: MAGNESIUM HYDROXIDE 30 ML LIQUID UDC PO PRN ×2 (18:00→23:15)
[2018-03-01] MEDS ORDERED: BISACODYL 10 MG SUPP.RECT RC PRN (18:00)
--- NOTE | 2018-03-01 18:44 | NUR ---
PT TRANSFERED TO [facility] IN STABLE CONDITION. PT WITH NO SIGN OF DISTRESS, NO CO CP OR SOB OR DIZZINESS THE WHOLE ER STAY.
[2018-03-01] MEDS: LACTULOSE 20 G/30 ML LIQUID UDC PO SCH ×2 (21:14→21:15)
[2018-03-01] MEDS ORDERED: MAG HYDROX/AL HYDROX/SIMETH 30 ML LIQUID UDC PO PRN (23:15)
[2018-03-02] MEDS: TEMAZEPAM 7.5 MG CAPSULE PO PRN (00:01)
[2018-03-02] MEDS: ACETAMINOPHEN 325 MG TABLET PO PRN (00:01)
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
[2018-03-02 07:13] LABS: ALANINE AMINOTRANSFERASE 14 U/L (16-63); ALKALINE PHOSPHATASE 69 U/L (50-136); ASPARTATE AMINOTRANSFERASE 25 U/L (15-37); CARBON DIOXIDE 28 mmol/L (21-32); CHLORIDE 104 mmol/L (98-107); CREATININE 0.8 mg/dL (0.6-1.3); GLUCOSE 106 mg/dL (74-106); POTASSIUM 3.8 mmol/L (3.5-5.1); TOTAL PROTEIN, SERUM 6.5 g/dL (6.4-8.2); UREA NITROGEN, BLOOD 10 mg/dL (7-18)
[2018-03-02 07:30] VITALS: BP 150/85
[2018-03-02 07:48] LABS: MAGNESIUM 1.8 mg/dL (1.8-2.4)
[2018-03-02] MEDS: THIAMINE HCL 100 MG TABLET PO SCH (08:07)
[2018-03-02] MEDS: SENNOSIDES 1 TABLET PO SCH (08:07)
[2018-03-02] MEDS: FOLIC ACID 1 MG TABLET PO SCH (08:07)
[2018-03-02] MEDS: MULTIVITAMINS,THERAPEUTIC TABLET PO SCH (08:07)
[2018-03-02] MEDS: LACTULOSE 20 G/30 ML LIQUID UDC PO SCH ×2 (08:14→21:00)
--- NOTE | 2018-03-02 11:33 | NUR ---
PATIENT REFUSED AM LACTULOSE, MD CEDILLO NOTIFIED OF FINDINGS
[2018-03-02 16:31] VITALS: BP 115/64
[2018-03-02 16:39] VITALS: BP 170/83
[2018-03-02] MEDS ORDERED: CLONIDINE HCL 0.1 MG TABLET PO PRN (16:45)
--- NOTE | 2018-03-02 18:22 | NUR ---
PHARMACY VERIFIED THAT PATIENT RECEIVED PNEUMONIA VACCINATION 2016
[2018-03-02 19:30] VITALS: BP 118/67
--- NOTE | 2018-03-03 06:56 | NUR ---
Received pt to care, pt laying in bed, pt A&O X 2-3, pleasant, pt offered a snack which he accepted and ate 50%, pt refused to take lactulose because it causes diarrhea, pt incontinent over night. pt refused to take a shower but changed his clothes and his bedsheets were changed. Pt reqs briefs, given a diaper. Pt slept well throughout the night.
[2018-03-03 07:30] VITALS: BP 134/71
[2018-03-03] MEDS: SERTRALINE HCL 50 MG TABLET PO SCH (08:41)
[2018-03-03] MEDS: THIAMINE HCL 100 MG TABLET PO SCH (08:41)
[2018-03-03] MEDS: MULTIVITAMINS,THERAPEUTIC TABLET PO SCH (08:41)
[2018-03-03] MEDS: FOLIC ACID 1 MG TABLET PO SCH (08:41)
[2018-03-03] MEDS: SENNOSIDES 1 TABLET PO SCH (08:45)
[2018-03-03] MEDS: LACTULOSE 20 G/30 ML LIQUID UDC PO SCH ×2 (08:46→21:00)
[2018-03-03] MEDS: IBUPROFEN 400 MG TABLET PO PRN ×2 (09:27→23:55)
--- NOTE | 2018-03-03 14:41 | NUR ---
Initial Discharge Plan: Patient is currently homeless and has been living in [facility] in [place], [place]. Patient's daughter and contact, Rhonda [[phone]], states that once she finds a place to live, that Patient can stay with her. Currently Rhonda is in between housing. Patient states he would like to go to a facility (SNF) only if he can have his own room and its in [place]. If these requests cannot be met, then patient states he "[place]". personnel worker explained that these requests may not be able to be accommodated, but will look into SNF placement. Patient was agreeable with initial discharge plan. personnel worker will plan for a safe and proper discharge and continue to collaborate with MD and staff genetic counselor.
[2018-03-03 16:23] VITALS: BP 125/56
--- NOTE | 2018-03-03 17:28 | NUR ---
Gps/Recreation Instructor- No diarrhea noted this pm, adequate intake, encouraged to go to the bathroom to void. Uses wheel chair to roam around the unit, at times ambulates around w/o any devices. Decreased pain on his knees.No new complaints noted, safety reviewed emphasized.
--- NOTE | 2018-03-03 19:55 | NUR ---
RECEIVED PATIENT IN THE DAY ROOM WATCHING TV. HE IS NOTED A/O X 3. HE USES A WHEELCHAIR TO TRANSFER. HE IS NOTED WITH FAIR INSIGHT TO THE REASON FOR HIS ADMISSION TO [facility]HU. HE IS ABLE TO VERBALIZED FEELINGS. DENIES SI, DENIES JHI/VH/AH. LABILE WITH MOOD AND BLUNTED AFFECT. SAFETY WAS EMPHASIS. WILL CONTINUE TO MONITOR.
[2018-03-03] MEDS: ACETAMINOPHEN 325 MG TABLET PO PRN (19:56)
--- NOTE | 2018-03-03 20:00 | NUR ---
PATIENT REPORTED MODERATE BILATERAL KNEE PAIN. TYLENOL 650 MG PO PRN WAS GIVEN FOR PAIN. WILL CONTINUE TO MONITOR.
[2018-03-03] MEDS: TEMAZEPAM 7.5 MG CAPSULE PO PRN (21:21)
--- NOTE | 2018-03-03 21:25 | NUR ---
PATIENT REFUSED LACTULOSE 30MG PO. HE STATED THAT HE DOES NOT HAVE ANY DIARRHEA OR LOOSE STOOL; HOWEVER, HE REFUSED THIS MEDS BECAUSE HE IS AFRAID OF HAVING DIARRHEA IN THE MIDDLE OF THE NIGHT. HE ALSO REQUESTED A "SLEEPING PILL" TEMAZEPAM 7.5 MG PO PRN WAS GIVEN FOR INSOMNIA, PER PATIENT REQUEST AND NURSING ASSESSMENT. WILL CONTINUE TO MONITOR,
[2018-03-03 21:43] VITALS: BP 141/70
[2018-03-03] MEDS: LORAZEPAM 0.5 MG TABLET PO PRN (23:55)
--- NOTE | 2018-03-04 | NUR ---
PATIENT C/O UNABLE TO FALL ASLEEP, HE STATED THAT HE USUALLY TAKES TWO SLEEPING PILLS, NOT ONE. HE ALSO STATED THAT HIS BILATERAL KNEE PAIN IS BACK. HE DESCRIBED THE PAIN CHRONIC, ACHY, MODERATE IN INTENSITY. MOTRIN 400MG PO PRN WAS GIVEN FOR PAIN WELL ATIVAN 0.5 MG PO PRN FOR ANXIOUS. WILL CONTINUE TO MONITOR.
[2018-03-04] MEDS: ACETAMINOPHEN 325 MG TABLET PO PRN ×2 (01:37→21:02)
--- NOTE | 2018-03-04 01:40 | NUR ---
PATIENT CONTINUE AWAKE, HE STATED THAT HE CAN'T SLEEP. HE REQUESTED A PAIN MEDICATION FOR BILATERAL KNEE PAIN. 4/10 IN THE PAIN INTENSITY SCALE. TYLENOL 650 MG PO PRN WAS GIVEN. WILL CONTINUE TO MONITOR.
--- NOTE | 2018-03-04 03:10 | NUR ---
PATIENT NOTED SLEEPING COMFORTABLE IN HIS BED. WILL CONTINUE TO MONITOR.
[2018-03-04 07:30] VITALS: BP 132/78
[2018-03-04] MEDS: THIAMINE HCL 100 MG TABLET PO SCH (08:12)
[2018-03-04] MEDS: MULTIVITAMINS,THERAPEUTIC TABLET PO SCH (08:12)
[2018-03-04] MEDS: SERTRALINE HCL 50 MG TABLET PO SCH (08:12)
[2018-03-04] MEDS: FOLIC ACID 1 MG TABLET PO SCH (08:12)
[2018-03-04] MEDS: SENNOSIDES 1 TABLET PO SCH (08:15)
[2018-03-04] MEDS: LACTULOSE 20 G/30 ML LIQUID UDC PO SCH ×2 (08:15→20:33)
--- NOTE | 2018-03-04 14:42 | NUR ---
Discharge Planning Note: hair worker received call from Belinda [[phone]], air traffic coordinator, at [facility] stating that patient has been accepted to facility when ready for discharge. hair worker has informed psychiatrist and will await discharge date.
[2018-03-04 16:58] VITALS: BP 121/76
[2018-03-04 20:00] VITALS: BP 120/71
--- NOTE | 2018-03-04 21:03 | NUR ---
GPS: PATIENT C/O PAIN. TYLENOL 650 MG PO GIVEN.
[2018-03-04] MEDS: TEMAZEPAM 7.5 MG CAPSULE PO PRN (21:45)
--- NOTE | 2018-03-04 21:46 | NUR ---
GPS: PATIENT UNABLE TO SLEEP. RESTORIL 7.5 MG PO GIVEN FOR SLEEP.
--- NOTE | 2018-03-04 22:03 | NUR ---
GPS: PATIENT STATED I AM FEELING BETTER NOW. PRN EFFECTIVE FOR PAIN.
--- NOTE | 2018-03-04 22:46 | NUR ---
GPS: PATIENT SLEEPING EYE CLOSE. PRN EFFECTIVE FOR SLEEP.
[2018-03-05] MEDS: IBUPROFEN 400 MG TABLET PO PRN (00:05)
--- NOTE | 2018-03-05 00:06 | NUR ---
GPS: Patient c/o both knee pain. motrin 400 mg po given per patient requested.
--- NOTE | 2018-03-05 01:06 | NUR ---
gps: patient resting eye close. prn effective for pain.
--- NOTE | 2018-03-05 06:27 | NUR ---
GPS: REMAIN CALM AND COOPERATIVE.SLEPT 7 HRS THROUGH THE NIGHT AFTER SLEEPING MEDICATION GIVEN.NO C/O PAIN OR DISCOMFORT AT THIS TIME.
[2018-03-05 07:30] VITALS: BP 152/76
[2018-03-05] MEDS: MULTIVITAMINS,THERAPEUTIC TABLET PO SCH (08:49)
[2018-03-05] MEDS: FOLIC ACID 1 MG TABLET PO SCH (08:49)
[2018-03-05] MEDS: THIAMINE HCL 100 MG TABLET PO SCH (08:49)
[2018-03-05] MEDS: SERTRALINE HCL 50 MG TABLET PO SCH (08:49)
[2018-03-05] MEDS: LACTULOSE 20 G/30 ML LIQUID UDC PO SCH ×2 (08:50→20:03)
[2018-03-05] MEDS: SENNOSIDES 1 TABLET PO SCH (08:50)
[2018-03-05] MEDS ORDERED: PNEUMOCOCCAL 23-VAL P-SAC VAC 0.5 ML VIAL IM ONE (12:00)
[2018-03-05 17:56] VITALS: BP 155/73
[2018-03-05 20:00] VITALS: BP 119/68
[2018-03-05] MEDS: ACETAMINOPHEN 325 MG TABLET PO PRN (20:03)
[2018-03-05] MEDS: TEMAZEPAM 7.5 MG CAPSULE PO PRN (21:28)
--- NOTE | 2018-03-06 06:04 | NUR ---
GPS: Remain calm and cooperative.slept 7 hrs through the night after sleeping medication given. tylenol effective for knee pain. continue plan of care.
[2018-03-06 08:00] VITALS: BP 128/71
[2018-03-06] MEDS: MULTIVITAMINS,THERAPEUTIC TABLET PO SCH (08:10)
[2018-03-06] MEDS: LACTULOSE 20 G/30 ML LIQUID UDC PO SCH ×2 (08:10→20:58)
[2018-03-06] MEDS: FOLIC ACID 1 MG TABLET PO SCH (08:11)
[2018-03-06] MEDS: SERTRALINE HCL 50 MG TABLET PO SCH (08:11)
[2018-03-06] MEDS: SENNOSIDES 1 TABLET PO SCH (08:11)
[2018-03-06] MEDS: THIAMINE HCL 100 MG TABLET PO SCH (08:12)
[2018-03-06 15:28] VITALS: BP 100/64
[2018-03-06] MEDS: IBUPROFEN 400 MG TABLET PO PRN (16:49)
[2018-03-06 20:00] VITALS: BP 112/59
[2018-03-06] MEDS: TEMAZEPAM 7.5 MG CAPSULE PO PRN (21:23)
[2018-03-07 07:30] VITALS: BP 98/67
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
[2018-03-07] MEDS: FOLIC ACID 1 MG TABLET PO SCH (09:07)
[2018-03-07] MEDS: SENNOSIDES 1 TABLET PO SCH (09:07)
[2018-03-07] MEDS: SERTRALINE HCL 50 MG TABLET PO SCH (09:07)
[2018-03-07] MEDS: MULTIVITAMINS,THERAPEUTIC TABLET PO SCH (09:07)
[2018-03-07] MEDS: THIAMINE HCL 100 MG TABLET PO SCH (09:07)
[2018-03-07] MEDS: LACTULOSE 20 G/30 ML LIQUID UDC PO SCH ×2 (09:07→21:00)
--- NOTE | 2018-03-07 09:14 | NUR ---
patient refused cephulac Addendum: 03/07/18 at 0915 by CHONG TREVIZO RN Amended: Links added.
[2018-03-07 16:00] VITALS: BP 103/48
--- NOTE | 2018-03-07 19:25 | NUR ---
report given to Kizzy RN Addendum: 03/07/18 at 1925 by CHONG TREVIZO RN Amended: Links added.
[2018-03-07 20:17] VITALS: BP 97/46
[2018-03-07] MEDS: TEMAZEPAM 7.5 MG CAPSULE PO PRN (21:10)
[2018-03-07] MEDS: LORAZEPAM 0.5 MG TABLET PO PRN (22:56)
[2018-03-07] MEDS: ACETAMINOPHEN 325 MG TABLET PO PRN (22:56)
--- NOTE | 2018-03-07 23:37 | NUR ---
RECEIVED RESIDENT IN BED AND WAS PLEASANT UPON APPROACH.HE WAS NOT IN DISTRESS NEITHER DID HE C/O PAIN. HE DENIES A/H OR S/I.COMPLIANT WITH HIS MEDS AND CARE, LATER REQUESTED FOR RESTORIL TO HELP HIM SLEEP. ASSESSED AND SAME GIVEN WITH GOOD EFFECT.WILL CONTINUE TO MONITOR.
--- NOTE | 2018-03-08 06:51 | NUR ---
SLEPT APPROX.7HRS AFTER SLEEPING MED GIVEN. CALM IN BED. NO DISCOMFORT NOTED.
[2018-03-08 07:30] VITALS: BP 129/68
[2018-03-08] MEDS: MULTIVITAMINS,THERAPEUTIC TABLET PO SCH (08:46)
[2018-03-08] MEDS: THIAMINE HCL 100 MG TABLET PO SCH (08:46)
[2018-03-08] MEDS: SERTRALINE HCL 50 MG TABLET PO SCH (08:46)
[2018-03-08] MEDS: FOLIC ACID 1 MG TABLET PO SCH (08:46)
[2018-03-08] MEDS: SENNOSIDES 1 TABLET PO SCH (08:46)
[2018-03-08] MEDS: LACTULOSE 20 G/30 ML LIQUID UDC PO SCH ×2 (08:52→21:00)
[2018-03-08 17:22] VITALS: BP 111/68
[2018-03-08 19:30] VITALS: BP 102/69
--- NOTE | 2018-03-08 20:00 | NUR ---
RECEIVED PATIENT IN THE DAY ROOM SITTING IN HIS WHEELCHAIR. HE IS NOTED A/O X 2. HE IS ABLE TO TRANSFER VIA WHEELCHAIR AND ABLE TO MAKE HIS NEEDS KNOWN. PT NOTED CALM AND PLEASANT. FAIR INSIGHT AND JUDGMENT NOTED TO THE REASON FOR HIS ADMISSION. HE IS ALSO NOTED LESS IRRITABLE AND LESS DEMANDING. HE IS ABLE TO BE REDIRECTED. SAFETY WAS EMPHASIS. WILL CONTINUE TO MONITOR.
[2018-03-08] MEDS: TEMAZEPAM 7.5 MG CAPSULE PO PRN (21:24)
--- NOTE | 2018-03-08 21:25 | NUR ---
PATIENT REFUSED LACTULOSE AT BED TIME. MULTIPLE REDIRECTION GIVEN, YET REFUSED. HE STATED, 'NO, I DON'T WANT TO HAVE DIARRHEA. NO, I DON'T WANT IT". HE ALSO REQUESTED A "SLEEPING PILL". TEMAZEPAM 7.5MG PO PRN WAS GIVEN FOR INSOMNIA. WILL CONTINUE TO MONITOR.
[2018-03-09] MEDS: LORAZEPAM 0.5 MG TABLET PO PRN (03:32)
--- NOTE | 2018-03-09 03:35 | NUR ---
PATIENT APPROACHED THE NURSING STATION VIA WHEELCHAIR. HE STATED THAT HE IS UNABLE TO FALL BACK ASLEEP. HE IS NOTED MILDLY AGITATED AND UPSET. ATIVAN 0.5MG PO PRN WAS GIVEN. HE WAS ALSO REASSURED. WILL CONTINUE TO MONITOR.
[2018-03-09] MEDS: PANTOPRAZOLE SODIUM 40 MG TABLET.DR PO SCH (06:57)
[2018-03-09 07:30] VITALS: BP 108/70
[2018-03-09] MEDS: SENNOSIDES 1 TABLET PO SCH (08:24)
[2018-03-09] MEDS: SERTRALINE HCL 50 MG TABLET PO SCH (08:24)
[2018-03-09] MEDS: THIAMINE HCL 100 MG TABLET PO SCH (08:24)
[2018-03-09] MEDS: FOLIC ACID 1 MG TABLET PO SCH (08:25)
[2018-03-09] MEDS: MULTIVITAMINS,THERAPEUTIC TABLET PO SCH (08:25)
[2018-03-09] MEDS: LACTULOSE 20 G/30 ML LIQUID UDC PO SCH ×2 (08:29→21:00)
[2018-03-09 16:09] VITALS: BP 115/76
[2018-03-09 19:30] VITALS: BP 115/71
[2018-03-09] MEDS: ACETAMINOPHEN 325 MG TABLET PO PRN (21:48)
[2018-03-10] MEDS: PANTOPRAZOLE SODIUM 40 MG TABLET.DR PO SCH (06:37)
[2018-03-10 07:30] VITALS: BP 146/74
--- NOTE | 2018-03-10 08:05 | NUR ---
Received patient in bed, arousable. No shortness of breath noted. will monitor.
[2018-03-10] MEDS: LACTULOSE 20 G/30 ML LIQUID UDC PO SCH ×2 (09:00→20:39)
[2018-03-10] MEDS: SENNOSIDES 1 TABLET PO SCH (09:00)
[2018-03-10] MEDS: THIAMINE HCL 100 MG TABLET PO SCH (09:31)
[2018-03-10] MEDS: SERTRALINE HCL 50 MG TABLET PO SCH (09:31)
[2018-03-10] MEDS: MULTIVITAMINS,THERAPEUTIC TABLET PO SCH (09:31)
[2018-03-10] MEDS: FOLIC ACID 1 MG TABLET PO SCH (09:31)
--- NOTE | 2018-03-10 11:13 | NUR ---
Firearms Report: Riveting Machine Operator completed and submitted [employer] Firearms Report for 5250 GD certification.
--- NOTE | 2018-03-10 12:09 | NUR ---
Discharge Planning Note: Service Department Manager attempted to contact patient's daughter, Gabi Ruiz ([phone]). SW left message informing dtr of patient's pending DC to [facility] on 03/11/18 at 1:30pm. SW will continue to follow-up.
[2018-03-10 15:40] VITALS: BP 127/75
--- NOTE | 2018-03-10 16:30 | NUR ---
Patient compliant with all his medications. Denies pain and discomfort. will monitor.
[2018-03-10 20:57] VITALS: BP 120/64
[2018-03-10] MEDS: ACETAMINOPHEN 325 MG TABLET PO PRN (21:07)
--- NOTE | 2018-03-10 21:10 | NUR ---
GPS: PATIENT C/O BOTH KNEE PAIN. TYLENOL 650 MG PO GIVEN.
[2018-03-10] MEDS: TEMAZEPAM 7.5 MG CAPSULE PO PRN (21:21)
--- NOTE | 2018-03-10 22:10 | NUR ---
GPS: PATIENT STATED I AM FEELING BETTER NOW. PRN FOR PAIN EFFECTIVE.
[2018-03-10 23:50] VITALS: BP 144/73
[2018-03-11] MEDS: ACETAMINOPHEN 325 MG TABLET PO PRN (01:15)
[2018-03-11] MEDS: LORAZEPAM 0.5 MG TABLET PO PRN (03:09)
--- NOTE | 2018-03-11 03:15 | NUR ---
GPS: PATIENT C/O ANXIETY. ATIVAN 0.5 MG PO GIVEN FOR ANXIETY.
[2018-03-11] MEDS: PANTOPRAZOLE SODIUM 40 MG TABLET.DR PO SCH (06:04)
--- NOTE | 2018-03-11 06:47 | NUR ---
GPS: REMAIN CALM AND COOPERATIVE WITH MEDICATION AND CARE. SLEPT 4 HRS THROUGH THE NIGHT AFTER RESTORIL 7.5 MG PO GIVEN. TYLENOL 650 MG PO GIVEN X2 THROUGH THE NIGHT FOR PAIN AND EFFECTIVE. CONTINUE PLAN OF CARE.
[2018-03-11 07:30] VITALS: BP 127/73
--- NOTE | 2018-03-11 08:51 | NUR ---
Discharge Note: Patient will be discharged to [facility] [[address], [place] [address]; ] via private transportation at 1:30pm. Spoke with Belinda at the facility who has arranged transportation for the patient and states the facility is ready to accept the patient today. Left a message for patient's daughter, Gabi ([phone]) to alert about the patient's discharge. Patient is alert and oriented x3, denies SI/HI, and is agreeable with discharge plans. Patient will follow-up at the facility with Dr. Salazar (Relations Director) and Dr. Allan (Psychiatrist). Patient was provided with a brief substance abuse intervention and was referred to [facility] ([phone]); [facility] National Helpline ( ); and [facility] [[address], [place]; [phone]]. Patient was given outpatient mental health referrals to [facility] [[address], [place] [address]; [phone]]; [facility] Crisis Line ([phone]); [place] [facility] ( ).
[2018-03-11] MEDS: LACTULOSE 20 G/30 ML LIQUID UDC PO SCH (09:00)
[2018-03-11] MEDS: THIAMINE HCL 100 MG TABLET PO SCH (10:34)
[2018-03-11] MEDS: SERTRALINE HCL 50 MG TABLET PO SCH (10:35)
[2018-03-11] MEDS: SENNOSIDES 1 TABLET PO SCH (10:35)
[2018-03-11] MEDS: MULTIVITAMINS,THERAPEUTIC TABLET PO SCH (10:35)
[2018-03-11] MEDS: FOLIC ACID 1 MG TABLET PO SCH (10:48)
[2018-03-11 15:30] VITALS: BP 113/68
--- NOTE | 2018-03-11 20:10 | NUR ---
PATIENT WAS DISCHARGED TO [facility] VIA PRIVATE TRANSPORTATION, BY OWN FACILITY, IN STABLE CONDITION WITH ALL HIS BELONGINGS. PATIENT NOTED CALM AND COOPERATIVE AT TIME OF DISCHARGED. ALL DISCHARGE PAPERS WERE GIVEN TO THE [facility] STAFF.
== END 2018-03-11 20:10 | DRG 885 ==
LOC: ER 13:11 → GPS 18:34
PROVIDERS: ADMIT Psychiatry & Neurology Psychiatry
DX: F33.2 Major depressive disorder, recurrent severe without psychotic features (principal); F03.91 Unspecified dementia, unspecified severity, with behavioral disturbance; E44.0 Moderate protein-calorie malnutrition; E87.6 Hypokalemia; E83.42 Hypomagnesemia; F39 Unspecified mood [affective] disorder; Z73.6 Limitation of activities due to disability; F41.9 Anxiety disorder, unspecified; M19.90 Unspecified osteoarthritis, unspecified site; K21.9 Gastro-esophageal reflux disease without esophagitis; I10 Essential (primary) hypertension; Z68.26 Body mass index [BMI] 26.0-26.9, adult; Y90.3 Blood alcohol level of 60-79 mg/100 ml; E88.09 Other disorders of plasma-protein metabolism, not elsewhere classified; M62.81 Muscle weakness (generalized); F10.10 Alcohol abuse, uncomplicated
CPT/HCPCS: 36415; 70030-TC; 70450; 71045; 80307; 83735; 85025; 85730; 90732; 93005; 97116; 97530; A4663; G0480; J3475; J3480; J3490

== ENCOUNTER 2023-07-06 16:35 | Inpatient (IN) | payer MEDICARE, OTHER ==
[~2023-07-06] VITALS: Ht 170.2 cm; Wt 74.8 kg
[~2023-07-06 16:35] MED LIST changes: -ACET325C PO; +ACET325C3 PO; -FOLI1TAB16 PO; +FOLI1TAB94 PO; -LACT10SO PO; +LACT10SO3 PO; +MULT-594 PO; -MULT1TAB73 PO; -SENN-167 PO; +SENN-261 PO
[2023-07-06 17:12] LABS: BASOPHILS # (AUTO) 0.2 K/UL (0.0-0.2); BASOPHILS % (AUTO) 2.5 % (0.0-2.0); EOSINOPHILS # (AUTO) 0.1 K/uL (0.0-0.7); HEMATOCRIT 43.5 % (36.7-47.1); HEMOGLOBIN 14.5 g/dL (12.5-16.3); LYMPHOCYTES # (AUTO) 2.6 K/uL (0.8-4.8); LYMPHOCYTES % (AUTO) 28.8 % (20.5-51.5); MEAN CORPUSCULAR HEMOGLOBIN 30.3 uug (23.8-33.4); MEAN CORPUSCULAR HGB CONC 33 g/dL (32.5-36.3); MEAN CORPUSCULAR VOLUME 91.2 fL (73.0-96.2); MONOCYTES # (AUTO) 0.6 K/uL (0.1-1.30); MONOCYTES % (AUTO) 7.1 % (0.0-11.0); NEUTROPHILS # (AUTO) 5.5 K/uL (1.8-8.9); NEUTROPHILS % (AUTO) 60.6 % (38.5-71.5); PLATELET COUNT (AUTO) 306 K/uL (152-348); RED BLOOD CELL COUNT(AUTO) 4.77 MIL/uL (4.06-5.63); RED CELL DISTRIBUTION WIDTH 14.8 % (12.1-16.2)
[2023-07-06] MEDS ORDERED: DIVA125C2 PO (17:12)
[2023-07-06] MEDS ORDERED: POLY15DR31 EACHEYE (17:12)
[2023-07-06] MEDS ORDERED: CLON0.1T PO (17:12)
[2023-07-06] MEDS ORDERED: NA P133E RC (17:12)
[2023-07-06] MEDS ORDERED: TROL35.4 TP (17:12)
[2023-07-06] MEDS ORDERED: BREX0.5T PO (17:12)
[2023-07-06 17:18] LABS: CALCIUM 9.3 mg/dL (8.5-10.1); CARBON DIOXIDE 30 mmol/L (21-32); CHLORIDE 104 mmol/L (98-107); GLUCOSE 114 mg/dL (74-106); POTASSIUM 4.1 mmol/L (3.5-5.1); SODIUM SERUM 140 mmol/L (136-145); UREA NITROGEN, BLOOD 18 mg/dL (7-18)
[2023-07-06 17:19] LABS: DIFFERENTIAL COMMENT 1
[2023-07-06 17:24] LABS: ALANINE AMINOTRANSFERASE 12 U/L (16-63); ALBUMIN 3.5 g/dL (3.4-5.0); ALKALINE PHOSPHATASE 65 U/L (50-136); ASPARTATE AMINOTRANSFERASE 15 U/L (15-37); BILIRUBIN,DIRECT 0.2 mg/dL (0.0-0.2); BILIRUBIN,TOTAL 0.8 mg/dL (0.2-1.0); TOTAL PROTEIN, SERUM 8.6 g/dL (6.4-8.2)
[2023-07-06 17:25] LABS: ETHANOL < 3 MG/DL (0-10)
[2023-07-06 17:43] LABS: ACETAMINOPHEN < 2.0 ug/mL (10-30)
[2023-07-06] MEDS ORDERED: OLANZAPINE 10 MG VIAL IM ONE ×2 (19:30)
[2023-07-06] MEDS ORDERED: LORAZEPAM 0.5 MG TABLET PO PRN (22:45)
[2023-07-06] MEDS ORDERED: BLOOD SUGAR DIAGNOSTIC 1 EACH STRIP VI ONE (22:45)
[2023-07-06] MEDS ORDERED: MAGNESIUM HYDROXIDE 30 ML LIQUID UDC PO PRN (22:45)
[2023-07-06] MEDS ORDERED: MAG HYDROX/AL HYDROX/SIMETH 30 ML LIQUID UDC PO PRN (22:45)
[2023-07-06 22:55] VITALS: BP 127/76; TEMP 97.8; O2SAT 96
[2023-07-07] MEDS: ZOLPIDEM 5 MG TABLET PO PRN ×2 (00:31→21:53)
[2023-07-07 07:48] VITALS: BP 120/61; TEMP 98.2; O2SAT 96
[2023-07-07 15:49] VITALS: BP 167/63; TEMP 98; O2SAT 96
[2023-07-07] MEDS ORDERED: FLEET ENEMA 133 ML BOTTLE RC PRN (17:45)
[2023-07-07] MEDS ORDERED: ACETAMINOPHEN 325 MG TABLET PO PRN (17:45)
[2023-07-07] MEDS ORDERED: ACETAMINOPHEN 325 MG TABLET-SA PATIENTS-PAIN ONLY PO PRN (17:45)
[2023-07-07] MEDS ORDERED: CLONIDINE HCL 0.1 MG TABLET PO PRN (17:45)
[2023-07-07] MEDS ORDERED: ASPERCREAM TP PRN (17:45)
[2023-07-07] MEDS ORDERED: POLYVINYL ALCOHOL OPHT DROPS 15 ML BOTTLE EACHEYE PRN (17:45)
[2023-07-07] MEDS ORDERED: MAGNESIUM HYDROXIDE 30 ML LIQUID UDC PO PRN (17:45)
[2023-07-07] MEDS ORDERED: IBUPROFEN 400 MG TABLET PO PRN (17:45)
[2023-07-07 20:00] VITALS: BP 114/46; TEMP 97.7; O2SAT 96
[2023-07-07] MEDS: DIVALPROEX 125 MG TABLET.DR PO SCH (20:35)
[2023-07-07] MEDS ORDERED: risperiDONE-M 0.5 MG TAB.RAPDIS PO SCH (21:00)
[2023-07-07] MEDS: ACETAMINOPHEN 325 MG TABLET PO PRN (21:53)
[2023-07-07] MEDS: risperiDONE-M 0.5 MG TAB.RAPDIS PO PRN (23:31)
[2023-07-08 08:02] VITALS: BP 112/58; TEMP 98.4; O2SAT 96
[2023-07-08] MEDS: THIAMINE HCL 100 MG TABLET PO SCH (09:40)
[2023-07-08] MEDS: FOLIC ACID 1 MG TABLET PO SCH (09:40)
[2023-07-08] MEDS: MULTIVIT, IRON, MIN NO. 8, FA TABLET PO SCH (09:40)
[2023-07-08] MEDS: DIVALPROEX 125 MG TABLET.DR PO SCH ×3 (09:40→20:16)
[2023-07-08] MEDS: risperiDONE-M 0.5 MG TAB.RAPDIS PO SCH ×2 (11:28→18:00)
[2023-07-08 15:34] VITALS: BP 110/60; TEMP 97.4; O2SAT 97
[2023-07-08 20:00] VITALS: BP 109/59; TEMP 97.5; O2SAT 95
[2023-07-09] MEDS: DIVALPROEX 125 MG TABLET.DR PO SCH ×3 (08:49→20:10)
[2023-07-09] MEDS: MULTIVIT, IRON, MIN NO. 8, FA TABLET PO SCH (08:49)
[2023-07-09] MEDS: THIAMINE HCL 100 MG TABLET PO SCH (08:49)
[2023-07-09] MEDS: risperiDONE-M 0.5 MG TAB.RAPDIS PO SCH ×2 (08:49→17:23)
[2023-07-09] MEDS: FOLIC ACID 1 MG TABLET PO SCH (08:50)
[2023-07-09 08:54] VITALS: BP 133/48; TEMP 98; O2SAT 98
[2023-07-09] MEDS: risperiDONE-M 0.5 MG TAB.RAPDIS PO PRN (13:30)
[2023-07-09 15:28] VITALS: BP 134/71; TEMP 98; O2SAT 98
[2023-07-09 20:00] VITALS: BP 139/64; TEMP 98.6; O2SAT 95
[2023-07-09] MEDS: ZOLPIDEM 5 MG TABLET PO PRN (21:33)
[2023-07-09] MEDS: ACETAMINOPHEN 325 MG TABLET PO PRN (21:33)
[2023-07-10 07:45] VITALS: BP 143/53; TEMP 97.8; O2SAT 97
[2023-07-10] MEDS: DIVALPROEX 125 MG TABLET.DR PO SCH ×3 (08:15→20:14)
[2023-07-10] MEDS: THIAMINE HCL 100 MG TABLET PO SCH (08:15)
[2023-07-10] MEDS: risperiDONE-M 0.5 MG TAB.RAPDIS PO SCH ×2 (08:15→16:37)
[2023-07-10] MEDS: FOLIC ACID 1 MG TABLET PO SCH (08:15)
[2023-07-10] MEDS: MULTIVIT, IRON, MIN NO. 8, FA TABLET PO SCH (08:15)
[2023-07-10 16:12] VITALS: BP 112/54; TEMP 97.9; O2SAT 97
[2023-07-10 20:00] VITALS: BP 103/56; TEMP 98; O2SAT 97
[2023-07-10] MEDS: ACETAMINOPHEN 325 MG TABLET PO PRN (21:07)
[2023-07-10] MEDS: ZOLPIDEM 5 MG TABLET PO PRN (21:42)
[2023-07-10] MEDS: risperiDONE-M 0.5 MG TAB.RAPDIS PO PRN (23:51)
[2023-07-11 07:58] VITALS: BP 144/68; TEMP 97.8; O2SAT 97
[2023-07-11 08:18] LABS: ALANINE AMINOTRANSFERASE 15 U/L (16-63); ALBUMIN 3.6 g/dL (3.4-5.0); ALKALINE PHOSPHATASE 60 U/L (50-136); ASPARTATE AMINOTRANSFERASE 14 U/L (15-37); BILIRUBIN,TOTAL 1.3 mg/dL (0.2-1.0); CALCIUM 9.1 mg/dL (8.5-10.1); CARBON DIOXIDE 27 mmol/L (21-32); CHLORIDE 107 mmol/L (98-107); GLUCOSE 93 mg/dL (74-106); SODIUM SERUM 143 mmol/L (136-145); TOTAL PROTEIN, SERUM 8.5 g/dL (6.4-8.2); UREA NITROGEN, BLOOD 24 mg/dL (7-18); VALPROIC ACID 52 ug/mL (50-100)
[2023-07-11] MEDS: risperiDONE-M 0.5 MG TAB.RAPDIS PO SCH ×2 (08:40→17:42)
[2023-07-11] MEDS: DIVALPROEX 125 MG TABLET.DR PO SCH ×3 (08:40→20:39)
[2023-07-11] MEDS: THIAMINE HCL 100 MG TABLET PO SCH (08:40)
[2023-07-11] MEDS: MULTIVIT, IRON, MIN NO. 8, FA TABLET PO SCH (08:40)
[2023-07-11] MEDS: FOLIC ACID 1 MG TABLET PO SCH (08:40)
[2023-07-11 16:07] VITALS: BP 98/53; TEMP 97.9; O2SAT 97
[2023-07-11 20:00] VITALS: BP 117/48; TEMP 97.8; O2SAT 96
[2023-07-12 07:53] VITALS: BP 105/53; TEMP 98.2; O2SAT 98
[2023-07-12] MEDS: MULTIVIT, IRON, MIN NO. 8, FA TABLET PO SCH (08:54)
[2023-07-12] MEDS: THIAMINE HCL 100 MG TABLET PO SCH (08:54)
[2023-07-12] MEDS: risperiDONE-M 0.5 MG TAB.RAPDIS PO SCH ×2 (08:54→16:35)
[2023-07-12] MEDS: DIVALPROEX 125 MG TABLET.DR PO SCH ×3 (08:55→20:09)
[2023-07-12] MEDS: FOLIC ACID 1 MG TABLET PO SCH (08:55)
[2023-07-12 16:05] VITALS: BP 111/53; TEMP 98; O2SAT 98
[2023-07-12 20:00] VITALS: BP 114/62; TEMP 97.7; O2SAT 97
[2023-07-12] MEDS: ZOLPIDEM 5 MG TABLET PO PRN (21:14)
[2023-07-12] MEDS: ACETAMINOPHEN 325 MG TABLET PO PRN (21:14)
[2023-07-13 07:53] VITALS: BP 125/55; TEMP 98; O2SAT 100
[2023-07-13] MEDS: THIAMINE HCL 100 MG TABLET PO SCH (09:46)
[2023-07-13] MEDS: FOLIC ACID 1 MG TABLET PO SCH (09:46)
[2023-07-13] MEDS: risperiDONE-M 0.5 MG TAB.RAPDIS PO SCH (09:46)
[2023-07-13] MEDS: MULTIVIT, IRON, MIN NO. 8, FA TABLET PO SCH (09:46)
[2023-07-13] MEDS: DIVALPROEX 125 MG TABLET.DR PO SCH ×3 (09:48→21:13)
[2023-07-13 15:19] VITALS: BP 121/64; TEMP 97.4; O2SAT 97
[2023-07-13 20:00] VITALS: BP 139/61; TEMP 98.1; O2SAT 97
[2023-07-13] MEDS ORDERED: risperiDONE-M 0.5 MG TAB.RAPDIS PO SCH (21:00)
[2023-07-14] MEDS: ZOLPIDEM 5 MG TABLET PO PRN
[2023-07-14 07:59] VITALS: BP 121/64; TEMP 98; O2SAT 98
[2023-07-14] MEDS: MULTIVIT, IRON, MIN NO. 8, FA TABLET PO SCH (09:08)
[2023-07-14] MEDS: DIVALPROEX 125 MG TABLET.DR PO SCH ×3 (09:08→20:50)
[2023-07-14] MEDS: FOLIC ACID 1 MG TABLET PO SCH (09:08)
[2023-07-14] MEDS: risperiDONE-M 0.5 MG TAB.RAPDIS PO SCH (09:09)
[2023-07-14] MEDS: THIAMINE HCL 100 MG TABLET PO SCH (09:10)
[2023-07-14 15:09] VITALS: BP 104/60; TEMP 98; O2SAT 96
[2023-07-14 20:15] VITALS: BP 118/62; TEMP 97.9; O2SAT 96
[2023-07-14] MEDS ORDERED: risperiDONE-M 0.5 MG TAB.RAPDIS PO SCH (21:00)
[2023-07-15 08:18] LABS: ALANINE AMINOTRANSFERASE 14 U/L (16-63); ASPARTATE AMINOTRANSFERASE 17 U/L (15-37); VALPROIC ACID 74 ug/mL (50-100)
[2023-07-15 08:47] VITALS: BP 106/60; TEMP 98.2; O2SAT 98
[2023-07-15] MEDS: FOLIC ACID 1 MG TABLET PO SCH (08:58)
[2023-07-15] MEDS: MULTIVIT, IRON, MIN NO. 8, FA TABLET PO SCH (08:58)
[2023-07-15] MEDS: THIAMINE HCL 100 MG TABLET PO SCH (08:59)
[2023-07-15] MEDS: risperiDONE-M 0.5 MG TAB.RAPDIS PO SCH (09:00)
[2023-07-15] MEDS: DIVALPROEX 125 MG TABLET.DR PO SCH ×2 (09:01→13:21)
== END 2023-07-15 15:45 | DRG 885 ==
LOC: ER 16:39 → GPS 22:39
PROVIDERS: ADMIT Psychiatry & Neurology Psychiatry; ATTEND Nurse Practitioner Acute Care
DX: F39 Unspecified mood [affective] disorder (principal); F03.93 Unspecified dementia, unspecified severity, with mood disturbance; D68.59 Other primary thrombophilia; E78.5 Hyperlipidemia, unspecified; F12.90 Cannabis use, unspecified, uncomplicated; F32.9 Major depressive disorder, single episode, unspecified; I10 Essential (primary) hypertension; I48.91 Unspecified atrial fibrillation; M19.90 Unspecified osteoarthritis, unspecified site; Z87.891 Personal history of nicotine dependence; Z95.0 Presence of cardiac pacemaker; F19.10 Other psychoactive substance abuse, uncomplicated; F10.21 Alcohol dependence, in remission; Z73.6 Limitation of activities due to disability; R53.1 Weakness; R26.81 Unsteadiness on feet; Z20.822 Contact with and (suspected) exposure to COVID-19; R73.03 Prediabetes; F29 Unspecified psychosis not due to a substance or known physiological condition; Z79.899 Other long term (current) drug therapy
CPT/HCPCS: 36415; 80164; 84450; 84460; 85025; 85049; G0480; J2358